=== PATIENT | male | born 1970 | race Caucasian/White ===

== ENCOUNTER → 2016-06-04 | Outpatient (CLI) | payer BC ==
--- NOTE | 2016-06-06 13:03 | XR ---
EXAMINATION TYPE: XR shoulder complete LT DATE OF EXAM: 06/04/2016 2:58 PM COMPARISON: NONE HISTORY: Pain TECHNIQUE: Shoulder examined in 3 views FINDINGS: The humeral head articulates with the glenoid. The acromio-clavicular junction is normal. No acute fractures or dislocations are evident. Largest lymph node may be in the axillary region. Physical correlation is recommended. A follow up study can be performed 7-10 days from acute trauma for continued pain. IMPRESSION: 1. Normal osseous Shoulder . 2. Possible large lymph node within the left axillary region. Physical correlation is recommended.
== END | disposition home or self-care (01) ==
LOC: RADXRYALE 14:46
PROVIDERS: ATTEND Family Medicine
DX: M25.512 Pain in left shoulder (principal)

== ENCOUNTER → 2016-07-05 | Outpatient (CLI) | payer BC | END | disposition home or self-care (01) | LOC: RADMRIMAIN 15:46 | PROVIDERS: ATTEND Family Medicine | DX: Z53.9 Procedure and treatment not carried out, unspecified reason (principal) ==

== ENCOUNTER → 2016-07-22 | Outpatient (CLI) | payer BC ==
--- NOTE | 2016-07-22 12:50 | US ---
EXAMINATION TYPE: US axilla extremity LT DATE OF EXAM: 07/22/2016 COMPARISON: Left shoulder x-ray June 04, 2016. CLINICAL HISTORY: Enlarged Lymph nodes in armpit R59.0. Left axilla enlarged lymph node seen on recen t x-ray Left axilla area of concern: appears wnl Right axilla for comparison: appears wnl No worrisome solid or cystic mass or fluid collection is seen in left axilla or right axilla for comp daphne. No suspicious or benign-appearing adenopathy identified. IMPRESSION: As above, unremarkable study.
== END | disposition home or self-care (01) ==
LOC: RADUSWWP 12:07
PROVIDERS: ATTEND Family Medicine
DX: R59.0 Localized enlarged lymph nodes (principal)

== ENCOUNTER → 2018-04-20 | Outpatient (CLI) | payer BC ==
--- NOTE | 2018-04-20 14:53 | EST ---
EXERCISE STRESS AGE: 47 SEX: M HT: 74" WT: 210 PROTOCOL: Prabhu Stress Test STAGE: 3 DURATION OF EXERCISE: 9:00 HEART RATE REST: 53 BLOOD PRESSURE REST: 132/74 MAXIMUM HEART RATE ACHIEVED: 140 MAXIMUM BLOOD PRESSURE: 203/87 85% MPHR: 147 100% MPHR: 173 METS: 10.5 INDICATIONS: Palpitations. CLINICAL INFORMATION: Baseline rhythm is a sinus mechanism, rate of 53, normal axis and intervals, normal echocardiogram. Baseline blood pressure 132/74 mmHg. Patient exercised on Prabhu protocol for 9 minutes reaching peak rate of 140 beats per minute which is equal to 81% maximum predicted heart rate. Peak blood pressure 203/87 mmHg. Test was terminated secondary to fatigue. There was no chest pain on electrocardiograph monitoring. Occasional PVCs. There was no evidence of diagnostic ischemic ST deviation. CONCLUSION: 1. Average exercise tolerance with occasional PVCs. 2. Normal EKG response to exercise at the heart rate achieved. Patient did not achieve 85% of maximum predicted heart rate. 3. No chest discomfort. MMODL / IJN: [id number] / [facility]ENTERAn[facility]
== END ==
LOC: RADNMMAIN 10:43
PROVIDERS: ATTEND Family Medicine
DX: R07.9 Chest pain, unspecified (principal)
CPT/HCPCS: 93017

== ENCOUNTER 2018-09-05 19:13 | Emergency (ER) | payer BC ==
[2018-09-05] MEDS ORDERED: LIDOCAINE 1% INJ 10MG/ML (20 ML MDV) SQ ONE (19:32)
[2018-09-05] MEDS ORDERED: DIPH,PERTUS(ACELL)TETVAC-LF 0.5 ML VIAL IM ONE (19:32)
[2018-09-05] MEDS ORDERED: CEPHALEXIN 500MG STARTER PACK 4 CAP BTL PO STA (20:48)
--- NOTE | 2018-09-05 20:50 | ED ---
Wound/Laceration HPI - General Chief Complaint: Wound/Laceration Stated Complaint: Hughes in foot Time Seen by Provider: 09/05/18 19:29 Source: patient, family Mode of arrival: ambulatory Limitations: no limitations - History of Present Illness Initial Comments: 48-year-old male patient presents to the emergency department today for evaluation of a fishhook to the left second toe. Patient states he was walking in his storage area when he stepped on a fishhook pain from his tackle box. Patient states he did attempt to pull out however was unsuccessful. Patient states he is having some discomfort to the area. Denies any numbness or tingling to the toe. He is unsure when his last tetanus vaccine was administered. Denies any other injuries. Patient denies any headache, neck pain, back pain, chest pain, shortness of breath, dizziness, weakness, abdominal pain, nausea, vomiting, or difficulties with bowel movements or urination. - Related Data Previous Rx's Medication Instructions Recorded Cephalexin [Keflex] 500 mg PO Q6H #24 cap 09/05/18 Allergies Allergy/AdvReac Type Severity Reaction Status Date / Time aspirin Allergy Rash/Hives Verified 09/05/18 19:28 Penicillins Allergy Rash/Hives Verified 09/05/18 19:28 Review of Systems ROS Statement: Those systems with pertinent positive or pertinent negative responses have been documented in the HPI. ROS Other: All systems not noted in ROS Statement are negative. Past Medical History Past Medical History: Hypertension History of Any Multi-Drug Resistant Organisms: None Reported Additional Past Surgical History / Comment(s): fissurectomy Past Psychological History: No Psychological Hx Reported Smoking Status: Current every day smoker Past Alcohol Use History: Occasional Past Drug Use History: None Reported General Exam Limitations: no limitations General appearance: alert, in no apparent distress, other (Physical well- developed, well-nourished adult male patient in no acute distress. Vital signs upon presentation are temperature 98.8F, pulse 71, respirations 22, blood pressure 129/79, pulse ox 98% on room air.) Eye exam: Present: normal appearance, PERRL, EOMI. Absent: scleral icterus, conjunctival injection, periorbital swelling ENT exam: Present: normal exam, normal oropharynx, mucous membranes moist Respiratory exam: Present: normal lung sounds bilaterally. Absent: respiratory distress, wheezes, rales, rhonchi, stridor Cardiovascular Exam: Present: regular rate, normal rhythm, normal heart sounds. Absent: systolic murmur, diastolic murmur, rubs, gallop, clicks GI/Abdominal exam: Present: soft, normal bowel sounds. Absent: distended, tenderness, guarding, rebound, rigid Extremities exam: Present: full ROM, normal capillary refill, other (There is facial foreign body noted to the plantar surface of the left second toe over the middle phalanx. No active bleeding. Skin is pink, warm, dry. Cap refills less than 3 seconds. Pedal pulses 2+ and equal bilaterally.). Absent: normal inspection, tenderness, pedal edema, joint swelling, calf tenderness Neurological exam: Present: alert, oriented X3, CN II-XII intact Psychiatric exam: Present: normal affect, normal mood Skin exam: Present: warm, dry, intact, normal color. Absent: rash Course Vital Signs 09/05/18 19:24 Temperature 98.8 F Pulse Rate 71 Respiratory 22 Rate Blood Pressure 129/79 O2 Sat by Pulse 98 Oximetry Procedures - Procedures Initial comment: Left second toe was prepped with iodine. Anesthetized using 3 mL of lidocaine. Fish hook was clipped and pulled through. Patient tolerated procedure well. Area was cleansed afterwards. Medical Decision Making - Medical Decision Making 48-year-old male patient presented to the emergency department today for kristine luation of fishhook foreign body to the left second toe. Hughes was removed as documented. Patient neurovascular status is intact. Patient was started on Keflex for infection prevention. He is instructed take Tylenol Motrin for pain control. Tetanus was updated. He is instructed to follow-up with his primary care physician for recheck in 1-2 days. Return parameters discussed in detail. He verbalizes understanding and agrees with this plan. Disposition Clinical Impression: Fishing hook foreign body Disposition: HOME SELF-CARE Condition: Good Instructions (If sedation given, give patient instructions): Puncture Wound (ED) Additional Instructions: Keep wound clean and dry. Take Motrin for pain control. Complete antibiotic prescription in full to prevent infection. Follow-up through primary care physician for recheck of the area in 1-2 days. Return to the emergency department immediately for any new, worsening, or concerning symptoms. Prescriptions: Cephalexin [Keflex] 500 mg PO Q6H #24 cap Is patient prescribed a controlled substance at d/c from ED?: No Referrals: Tino Whittaker DO [Primary Care Provider] - 1-2 days Time of Disposition: 20:50
[2018-09-05 21:20] VITALS: BP 125/68; PULSE 76; RESP 18; TEMP 98.6
== END 2018-09-05 21:19 | disposition home or self-care (01) ==
LOC: EC 19:13
DX: S90.455A Superficial foreign body, left lesser toe(s), initial encounter (principal); F17.200 Nicotine dependence, unspecified, uncomplicated; Z88.6 Allergy status to analgesic agent; Z88.0 Allergy status to penicillin; Z23 Encounter for immunization; W45.8XXA Other foreign body or object entering through skin, initial encounter; Y93.01 Activity, walking, marching and hiking; Y92.89 Other specified places as the place of occurrence of the external cause
CPT/HCPCS: 99283; 90471; 90715; J2001

== ENCOUNTER → 2020-06-14 | Outpatient (CLI) | payer BC ==
--- NOTE | 2020-06-21 11:22 | P.ARTDOP ---
Arterial Doppler LOWER EXTREMITY ARTERIAL DOPPLER: DATE OF SERVICE: 06/14/2020 Reason for study: Presurgical testing. Doppler waveforms: Multiphasic bilaterally throughout. Pulse volume recording: []. Pressure gradients: None. Ankle-brachial indices: Greater than 1 bilaterally. Toe brachial indices: 0.78 on the right, 0.71 on the left Impression: Normal study.
== END | disposition home or self-care (01) ==
LOC: RADUSWWP 13:08
PROVIDERS: ATTEND Family Medicine
DX: M79.604 Pain in right leg (principal); M79.605 Pain in left leg
CPT/HCPCS: 93922

== ENCOUNTER → 2021-06-04 | Outpatient (CLI) | payer BC ==
--- NOTE | 2021-06-04 11:35 | XR ---
EXAMINATION TYPE: XR knee complete RT DATE OF EXAM: 06/04/2021 CLINICAL HISTORY: pain TECHNIQUE: Three views of the right knee are obtained. COMPARISON: None. FINDINGS: There is no acute fracture/dislocation. The tri-compartment joint spaces appear within no rmal limits. Prepatellar soft tissue edema noted. IMPRESSION: There is no acute fracture or dislocation.ICD 10 NO FRACTURE, INITIAL EVALUATION
== END | disposition home or self-care (01) ==
LOC: RADXRYALE 11:20
PROVIDERS: ATTEND Family Medicine
DX: M25.561 Pain in right knee (principal)